=== PATIENT | male | born 1990 | race Caucasian/White ===

== ENCOUNTER 2021-06-13 11:57 | Emergency (ER) | payer OTHER ==
[2021-06-13 12:08] VITALS: BP 106/70; PULSE 99; TEMP 98.4; BMI 25.8
[2021-06-13] MEDS ORDERED: CYCLOBENZAPRINE HCL 10 MG TABLET (FP) PO ONE (12:35)
[2021-06-13] MEDS ORDERED: KETOROLAC TROMETHAMINE 15 MG/ML VIAL IM ONE (12:36)
[2021-06-13] MEDS ORDERED: LIDOCAINE 5% TOPICAL PATCH TP ONE (12:36)
[2021-06-13] MEDS ORDERED: CYCLOBENZAPRINE HCL 10 MG TABLET (FP) ONE (12:43)
[2021-06-13] MEDS ORDERED: LIDOCAINE 5% TOPICAL PATCH ONE (12:43)
[2021-06-13] MEDS ORDERED: KETOROLAC TROMETHAMINE 15 MG/ML VIAL ONE (12:43)
[2021-06-13] MEDS ORDERED: LIDOCAINE PATCH REMOVAL MC SCH (22:00)
== END 2021-06-13 13:15 | disposition home or self-care (01) ==
LOC: FER 11:57
PROC: 3E023GC Introduction of Other Therapeutic Substance into Muscle, Percutaneous Approach (ICD-10-PCS; principal; 2021-06-13)
DX: M54.6 Pain in thoracic spine (principal)
CPT/HCPCS: 99284-25

== ENCOUNTER 2022-02-09 18:12 | Emergency (ER) | payer OTHER ==
[2022-02-09 18:43] VITALS: BP 127/87; PULSE 80; RESP 20; TEMP 98; BMI 30.4
[2022-02-09] MEDS ORDERED: hydrOXYzine PAMOATE 25 MG CAPSULE (FP) PO ONE ×2 (19:31→19:40)
[2022-02-09] MEDS ORDERED: DICLOFENAC SODIUM 75 MG TABLET.DR PO ONE (19:31)
== END 2022-02-09 19:48 | disposition home or self-care (01) ==
LOC: FER 18:12
DX: M43.6 Torticollis (principal)
CPT/HCPCS: 72050-TC-FY; 99283-25